=== PATIENT | female | born 1955 | race Caucasian/White ===

== ENCOUNTER 2022-05-06 08:42 | Observation (INO) | payer MEDICARE, OTHER, MEDICAID, SELFPAY ==
[2022-05-06] VITALS (18 sets, daily range): BP systolic 106–163; BP diastolic 24–124; PULSE 100–141; RESP 15–28; TEMP 36.2–36.9; O2SAT 95–100; BMI 12.6
--- NOTE | ~2022-05-06 | XR_ITS ---
EXAMINATION: XR chest 1V portable INDICATION: Worsening shortness of breath TECHNIQUE: Portable AP chest at 0945 hours COMPARISON: None available FINDINGS: The lungs are hyperinflated. Airspace opacities of the left lung apex likely reflect scarri ng. There are widespread calcified nodules throughout the lungs. No pleural effusion or pneumothorax. The cardiomediastinal silhouette is normal. IMPRESSION: 1. Hyperinflation without acute cardiopulmonary abnormality. Reviewed, dictated and finalized at location A. [employer]IST[employer]
--- NOTE | 2022-05-06 08:43 | ED.SOB ---
HPI - SOB/Dyspnea General Chief Complaint: Shortness of Breath/Dyspnea Stated Complaint: SOB Time Seen by Provider: 05/06/22 08:42 Source: EMS Mode of arrival: EMS Limitations: clinical condition History of Present Illness HPI Narrative: 66 years old white female came by ambulance from home with increased shortness of breath over the last 24 hours. History of end-stage COPD, on chronic oxygen by nasal cannula at 4 L, patient is hospice. Patient's daughter who lives with her is telling me that patient have history of anxiety and panic attack and this morning probably had both and make her shortness of breath worse, she would like a mixed between comfort measures and antibiotic treatment for lung infection or urinary tract infection. Currently patient on Z-Murali for possible lung infection. Patient is hospice at home, she is still in the process to be transferred to hospice center. Because her daughter cannot take care of her. Hospice company is [employer] Related Data Allergies Allergy/AdvReac Type Severity Reaction Status Date / Time No Known Allergies Allergy Verified 05/06/22 09:26 Review of Systems Review of Systems: All systems reviewed & are unremarkable except as noted in HPI and below Exam Narrative: General appearance: Well-developed, malnourished, severe labored breathing Skin: Normal color Head: Normocephalic, nontraumatic Eyes: Clear conjunctiva ENT: Oropharynx normal, ears normal, nose normal Neck: Supple, nontender Chest and respiratory: Airway patent, diffuse diminution of air entry bilaterally, no wheezing or rhonchi Heart: Regular rate/rhythm Abdomen: Soft, nontender, no organomegaly, quiet bowel sounds Vascular: Normal peripheral pulses, normal capillary refill. Musculoskeletal: Normal range of motion, nontender back Neurologic: Alert, unable to talk because of the shortness of breath. Course Vital Signs Vital signs: Vital Signs Pulse Rate 141 H 05/06/22 08:45 Respiratory Rate 26 H 05/06/22 08:45 Blood Pressure 160/24 H 05/06/22 08:45 Pulse Oximetry 100 05/06/22 08:45 Temperature 36.9 C 05/06/22 08:46 Pulse Rate 119 H 05/06/22 11:01 Respiratory Rate 17 05/06/22 11:01 Blood Pressure 106/77 05/06/22 11:01 Pulse Oximetry 99 05/06/22 11:01 Oxygen Delivery Nasal Cannula 05/06/22 08:49 Oxygen Flow Rate 4 11/13/22 08:49 MDM - SOB/Dyspnea Differential Diagnosis Differential diagnosis: Likely acute exacerbation of chronic obstructive airways disease and community acquired pneumonia Lab Data Result diagrams: 05/06/22 10:53 05/06/22 10:02 Labs: Lab Results 05/06/22 05/06/22 Range/Units 08:50 10:02 Sodium 137 (137-145) mmol/L Potassium 4.0 (3.4-5.0) mmol/L Chloride 94 L (98-107) mmol/L Carbon Dioxide 30 (22-30) mmol/L Anion Gap 13 (8-16) mmol/L BUN 12 (7-17) mg/dL Creatinine 0.50 L (0.7-1.0) mg/dL Estim Creat Clear Calc 65 ml/min Estimated GFR > 60 (59 - ) Glucose 147 H (65-110) mg/dL Calcium 8.8 (8.4-10.2) mg/dL Total Bilirubin 0.7 (0.2-1.3) mg/dL AST 30 (14-36) U/L ALT 17 (6-35) U/L Alkaline Phosphatase 73 (38-126) U/L Total Protein 8.0 (6.3-8.2) g/dL Albumin 4.4 (3.5-5.1) g/dL Influenza A (RT-PCR) Negative (Negative) Influenza B (RT-PCR) Negative (Negative) RSV (RT-PCR) Negative (Negative) SARS-CoV-2 RNA (RT-PCR) Negative Imaging Data Radiologist's impression: Impressions Chest X-Ray 05/06/22 10:15 IMPRESSION: 1. Hyperinflation without acute cardiopulmonary abnormality. Critical Care Time Critical Care Time Criti
[2022-05-06] MEDS: ALBUTEROL SULFATE NEB 2.5 MG/3 ML INH 5 MG INHALATION ×2 (09:02→20:48)
[2022-05-06] MEDS: IPRATROPIUM BR 0.02% INH SOLN 0.5 MG/2.5 ML VIAL INHALATION ×2 (09:02→20:50)
[2022-05-06] MEDS: LORazepam INJ (*CRX) 2 MG/ML VIAL 0.5 MG IV PUSH (09:26)
[2022-05-06] MEDS: ONDANSETRON INJ 4 MG/2 ML VIAL IV PUSH (09:26)
[2022-05-06] MEDS: MORPHINE SULFATE (*CRX) 2 MG/ML INJ IV PUSH (09:27)
[2022-05-06 09:32] LABS: Influenza A QL RT-PCR Negative (Negative); Influenza B QL RT-PCR Negative (Negative); RSV RNA, RT-PCR Negative (Negative); SARS-CoV-2 RNA PCR Negative
[2022-05-06 10:24] LABS: Alanine Aminotransferase 17 U/L (6-35); Albumin Level 4.4 g/dL (3.5-5.1); Alkaline Phosphatase 73 U/L (38-126); Anion Gap 13 mmol/L (8-16); Aspartate Amino Transferase 30 U/L (14-36); Bilirubin,Total 0.7 mg/dL (0.2-1.3); Blood Urea Nitrogen 12 mg/dL (7-17); Calcium 8.8 mg/dL (8.4-10.2); Carbon Dioxide 30 mmol/L (22-30); Chloride 94 mmol/L (98-107); Estimated CRCL calculation 65 ml/min; Estimated Glomerular Filt Rate > 60; Glucose 147 mg/dL (65-110); Sodium 137 mmol/L (137-145)
--- NOTE | 2022-05-06 10:37 | PC.NURSE ---
PT Medication List Morphine 20mg/ml take 0.5ml (10mg) q2h prn mild sob Morphine ER 15mg BID ppa sob Prednisone 30mg Daily Treligy 100/62.5 Daily Albuterol Neb 3ml QID Spiriva 2 puffs Daily Pt did have resp infection and received Bactrim DS bid from 04/09/22 - 04/19/22. Pt is allowed abx if infection present, they do allow Bi-Pap, C-Pap, However NO Intubation unless patient would like to revoke her Hospice. [facility].
[2022-05-06 10:59] LABS: Basophils Absolute Auto 0.1 K/mm3 (0.0-0.1); Eosinophils Absolute Auto 0.1 K/mm3 (0-0.3); Eosinophils Percent Auto 0.4 % (0-4.4); Hematocrit 35.9 % (37.0-47.0); Immature Granulocyte Absolute 0.07 K/mm3 (0.00-0.031); Immature Granulocyte Percent A 0.5 % (0-0.5); Lymphocytes Absolute Auto 1.28 K/mm3 (0.9-3.2); Lymphocytes Percent Auto 9.8 % (18.3-44.2); Mean Corpuscular HGB Conc 30.6 g/dl (32-36); Mean Corpuscular Hemoglobin 27.9 pg (26-34); Mean Corpuscular Volume 91.1 fl (80-100); Mean Platelet Volume 8.1 fl (7.4-10.4); Monocytes Absolute Auto 1.2 K/mm3 (0.1-0.6); Monocytes Percent Auto 8.8 % (2.6-8.5); Neutrophils Absolute Auto 10.4 K/mm3 (1.3-6.7); Neutrophils Percent Auto 79.5 % (45.5-73.1); Platelet Count Result 369 k/mm3 (150-375); Red Blood Count 3.94 M/mm3 (4.2-5.4); Red Cell Distribution Width 15.4 % (11.5-14.5); White Blood Count 13.1 K/mm3 (4.5-10.0)
--- NOTE | 2022-05-06 12:10 | PC.NURSE ---
This patient, Sindhu Engel, was admitted to Medical Room 259-01. Patient/family oriented to hospital policies and general routines including ID bracelet, bed and alarms, visiting hours, pain management, procedures, bathroom and other care routines, personal items, smoking policy, room service/diet, and visiting hours. Information on how to activate the Rapid Response Team has been discussed. Patient/Family are encouraged to report perceived risks to care and to ask questions if they do not understand what they are told or what they should do.
[2022-05-06] MEDS: SODIUM CHLORIDE 0.9% IV 1,000 ML 75 ML IV CONT (12:32)
[2022-05-06] MEDS: methylPREDNISolone SOD SUCC 40 MG VIAL IV PUSH ×2 (12:33→16:43)
--- NOTE | 2022-05-06 16:11 | PM.IMHP ---
H&P: HPI History of Present Illness Date/Time: 05/06/22 16:11 Chief Complaint: Shortness of breath Narrative: 66yo female with chronic respiratory failure (4L) from end-stage COPD on hospice here for shortness of breath. Patient developed increasing shortness of breath and cough for the past few days. Her doctor called in Bactrim and steroids. She is finishing her Bactrim today. She remains on the prednisone. She is supposed to use her nebulizer treatments 3-4 times per day but only uses them on average 3-4 times per week. Patient also has anxiety with panic attacks. She wears 4 L of oxygen at rest and 5 L with activity. She has not increased her oxygen requirement. She denies any fever, chills, chest pain, palpitations, nausea, vomiting, dysuria, hematuria, constipation, diarrhea, back pain, abdominal pain or numbness/ tingling / weakness in her extremities. She does have a headache but this seems to be more chronic. She also is cold intolerant. This morning she states her symptoms became much worse. She was short of breath and could not breathe . She has a cough that is productive of bill brown sputum. Family felt the patient was having anxiety with panic attack. She is on scheduled morphine which was increased to t.i.d. earlier this week. She is also on Ativan 3 times a day scheduled and as needed. She tried Ativan but condition worsened and hospice was called. There was no response from the hospice team so 911 was called and patient was brought to the emergency room for evaluation. In the emergency room, blood pressure was 160/124, heart rate 141 and respiratory rate 26. She was 100% on 4 L. influenza, RSV and COVID were negative. White count was 13 K. chest x-ray showed hyperinflation. She was treated with breathing treatments. She was given morphine and Ativan. She was started on Solu-Medrol. She was admitted for further care. She states her breathing is much better today. Overall plan is for patient to remain on hospice and she wants to go to a care home with hospice. Review of Systems Review of Systems: All systems reviewed & are unremarkable except as noted in HPI and below [facility] Past Medical History Medical History (Updated 05/06/22 @ 17:27 by Jose Cruz Salazar MD) Cardiomyopathy End stage COPD Generalized anxiety disorder with panic attacks Surgical History Surgical History (Updated 05/06/22 @ 17:15 by Jose Cruz Salazar MD) Hx of section Family History Family History (Updated 05/06/22 @ 17:16 by Jose Cruz Salazar MD) Mother COPD (chronic obstructive pulmonary disease) Father Lung cancer Social History Social History (Updated 05/06/22 @ 17:17 by Jose Cruz Salazar MD) Social History: Patient smoked a pack a day for 28 years but quit at age 44. She was exposed to secondhand smoke. She occasionally drinks alcohol. No drug use. Lives with her daughter, son-in-law and 2 grandchildren. He is a DNR. Currently on hospice. Smoking status: Former smoker Alcohol intake: never Substance use: never Lack of Transportation: No Lack of Food: Never True Current Housing: I Have Housing Concerned About Future Housing: No Difficulty Paying Gas/Electric Bills: No Difficulty Paying for Meds: No Currently Unemployed: No Education: High School Diploma/GED Difficulty w/ Childcare or Family Care: No Spiritual care concerns: No Meds Home Medications and Allergies Home Medications Medication Instructions Recorded Confirmed Type Spiriva Respimat 4 mg inhalation DAILY 05/06/22 05/06/22 History fluticasone fur. 100 mcg-umeclid See Protocol inhalation DAILY 05/06/22 05/06/22 History 62.5 mcg-vilant 25 mcg inhalat.powder (Trelegy Ellipta) haloperidol 2 mg tablet 2 mg PO PRN 05/06/22 05/06/22 History hyoscyamine sulfate 0.125 mg 0.125 mg sublingual DAILY 05/06/22 05/06/22 History sublingual tablet lorazepam 0.5 mg tablet (Ativan) 0.5 mg
--- NOTE | 2022-05-06 16:51 | PCRCNOTE ---
Window of time for administration has passed. See next scheduled administration.
[2022-05-06] MEDS: LORazepam (*CRX) 1 MG TABLET PO (18:04)
[2022-05-06] MEDS: MORPHINE SULFATE (*CRX) 15 MG TABCR PO (18:04)
[2022-05-06] MEDS: LORazepam (*CRX) 0.5 MG TABLET PO (21:12)
[2022-05-07] VITALS (8 sets, daily range): BP systolic 135–153; BP diastolic 58–85; PULSE 88–106; RESP 16–21; TEMP 36.6–36.9; O2SAT 100
[2022-05-07] MEDS: ALBUTEROL SULFATE NEB 2.5 MG/3 ML INH 5 MG INHALATION ×3 (02:51→14:05)
[2022-05-07] MEDS: IPRATROPIUM BR 0.02% INH SOLN 0.5 MG/2.5 ML VIAL INHALATION ×3 (02:51→14:05)
[2022-05-07] MEDS: MORPHINE SULFATE (*CRX) 15 MG TABCR PO ×3 (05:08→21:02)
[2022-05-07] MEDS: LORazepam (*CRX) 0.5 MG TABLET PO ×3 (05:08→21:02)
[2022-05-07] MEDS: methylPREDNISolone SOD SUCC 40 MG VIAL IV PUSH ×3 (08:27→17:10)
[2022-05-07] MEDS: HYOSCYAMINE SULFATE 0.125 MG TABLET SUBLINGUAL (08:27)
[2022-05-07] MEDS: LORazepam (*CRX) 1 MG TABLET PO ×3 (11:01→23:06)
[2022-05-07] MEDS: MORPHINE SULFATE (*CRX) 2 MG/ML INJ IV PUSH (11:05)
--- NOTE | 2022-05-07 16:15 | PM.DS ---
DS: Admitting Diagnosis Discharge Date 05/07/22 Admitting Diagnosis Shortness of breath DS: Discharge Diagnosis Discharge Diagnosis (1) Acute respiratory failure: Code(s): J96.00 - Acute respiratory failure, unspecified whether with hypoxia or hypercapnia Status: Acute (2) COPD exacerbation: Code(s): J44.1 - Chronic obstructive pulmonary disease with (acute) exacerbation Status: Acute (3) End stage COPD: Code(s): J44.9 - Chronic obstructive pulmonary disease, unspecified Status: Acute (4) Cardiomyopathy: Code(s): I42.9 - Cardiomyopathy, unspecified Status: Acute (5) Generalized anxiety disorder with panic attacks: Code(s): F41.1 - Generalized anxiety disorder; F41.0 - Panic disorder [episodic paroxysmal anxiety] Status: Acute (6) Hospice care: Code(s): Z51.5 - Encounter for palliative care Status: Acute DS: Summary Hospital Course Reason for hospitalization: 66yo female on hospice for end stage COPD here for shortness of breath. Please see H&P for details Hospital Course: Patient presented with shortness of breath. In the emergency room, blood pressure was 160/124, heart rate 141 and respiratory rate 26.? She was 100% on 4 L. Influenza, RSV and COVID were negative.? White count was 13 K. CXR showed hyperinflation.? She was treated with breathing treatments.? She was given morphine and Ativan.? She was started on Solu-Medrol.? She was admitted for further care.? She has had clinical improvement with the treatment from the emergency room. Plan was for her to go to a residential under hospice care. SHe had clinical improvement. Arrangements made and she was discharged on 05/07/22 Status at Discharge Cognitive/behavioral status at discharge: stable Time Spent with Patient Time attestation: Total time spent providing and/or coordinating discharge services: 36 minutes Time spent: Greater than 30 minutes Specific discharge activities: discussed with family in detail Exam Narrative: AF 97.9 135/58 106 20 100% 4.5L Gen - thin, gaunt female in NARD Chest - very distant BS. CV - RRR Abd - soft. scaphoid. Nontender. Ext - no pedal edema. Neuro - patient is alert and appropriate Psych - normal mood and affect. Skin - warm and dry. Discharge Plan Discharge Attending physician on discharge: Jose Cruz Salazar Discharging Clinician: Jose Cruz Salazar Anticipated Discharge Date/Time: 05/07/22 16:19 Patient Disposition: Hospice - Medical Facility Activity: as tolerated Diet: regular Discharge Instructions: please fax discharge instructions to [facility] once complete at [phone]. Thank you. Patient Instructions: Pain Management (DC) Stand Alone Forms: General Discharge Information Follow-up/Referrals: PHYSICIAN NOT ON STAFF,NONSTAFF [Primary Care Provider] - Discharge Medications: New albuterol sulfate 2.5 mg /3 mL (0.083 %) Solution For Nebulization 5 mg inhalation Q6HRT Qty: 1 0RF Trelegy Ellipta 100-62.5-25 mcg Blister With Device 1 inh inhalation DAILY Qty: 28 0RF Continued hyoscyamine sulfate 0.125 mg Tablet, Sublingual 0.125 mg sublingual DAILY lorazepam [Ativan] 0.5 mg Tablet 0.5 mg PO TID Qty: 10 0RF Rx Instructions: and q2hr prn anxiety morphine 15 mg Tablet Extended Release 15 mg PO TID Qty: 10 0RF Changed haloperidol 1 mg Tablet 2 mg PO Q6H PRN (Reason: Agitation) Qty: 1 0RF prednisone 20 mg Tablet 20 mg PO DAILY Qty: 30 0RF morphine concentrate 100 mg/5 mL (20 mg/mL) Solution 5 mg PO Q2H PRN (Reason: pain) Qty: 15 0RF Discontinued Trelegy Ellipta 100-62.5-25 mcg Blister With Device See Protocol INHALATION DAILY Protocol: Insulin Corrective Low-Dose Dose/Route: Follow Hypoglycemia Order Condition: glucose 70-200 mg/dl Dose/Route: No additional insulin Condition: glucose 201-250 mg/
[2022-05-07 18:28] LABS: EDCOVIDSCREEN Negative (Negative)
--- NOTE | 2022-05-08 01:09 | PCRCNOTE ---
Window of time for administration has passed. See next scheduled administration.
[2022-05-08] MEDS: IPRATROPIUM BR 0.02% INH SOLN 0.5 MG/2.5 ML VIAL INHALATION (03:06)
[2022-05-08] MEDS: ALBUTEROL SULFATE NEB 2.5 MG/3 ML INH 5 MG INHALATION (03:06)
[2022-05-08 03:07] VITALS: PULSE 93; RESP 20
[2022-05-08 03:24] VITALS: PULSE 96; RESP 20
[2022-05-08] MEDS: LORazepam (*CRX) 1 MG TABLET PO (03:25)
[2022-05-08] MEDS: HALOPERIDOL 1 MG TABLET 2 MG PO (03:25)
== END 2022-05-08 03:35 | disposition hospice, inpatient (51) ==
LOC: ANHED 10:15 → ANH2MED 12:02
PROVIDERS: Admitting Provider Internal Medicine; Emergency Provider Emergency Medicine; Visit Provider Internal Medicine
DX: J96.00 Acute respiratory failure, unspecified whether with hypoxia or hypercapnia (principal); J44.1 Chronic obstructive pulmonary disease with (acute) exacerbation; F41.0 Panic disorder [episodic paroxysmal anxiety]; F41.1 Generalized anxiety disorder; I42.9 Cardiomyopathy, unspecified; Z87.891 Personal history of nicotine dependence; Z66 Do not resuscitate; Z79.51 Long term (current) use of inhaled steroids; Z20.822 Contact with and (suspected) exposure to COVID-19
CPT/HCPCS: 36415; 71045; 80053; 85025; 87426; 87637; 94640; 96361; 96374; 96375; 96376; 99285; A9270; C9803; G0378; J2060; J2270; J2405; J2920; J7030